=== PATIENT | male | born 1960 | race Caucasian/White ===

== ENCOUNTER 2021-01-16 08:03 | Emergency (ER) | payer OTHER ==
[2021-01-16 08:21] VITALS: BP 120/92; PULSE 75
[2021-01-16] MEDS ORDERED: Acetaminophen/HYDROcodone 325-5 MG Tab PO ONE (08:36)
--- NOTE | 2021-01-16 08:48 | EDM.PDOC ---
ED HPI GENERAL MEDICAL PROBLEM - General Chief Complaint: Chest Pain Stated Complaint: FALL,HEAD,RIB,KNEE INJURY.DIFFICULTY BREATHING Time Seen by Provider: 01/16/21 08:23 Source of Information: Reports: Patient, RN Notes Reviewed - History of Present Illness INITIAL COMMENTS - FREE TEXT/NARRATIVE: 60 yr old male with R chest wall pain status post fall against the metal bar of a trailer yesterday morning about 24 hrs ago. Continues to have severe pain with deep breathing, any type of motion. He did hit his R face, was briefly dazed. No LOC. No neck or chest discomfort. Right Chest Pain Score (Numeric/FACES): 10 - Related Data Allergies Allergy/AdvReac Type Severity Reaction Status Date / Time sodium pentothal Allergy Mild Vomiting Uncoded 01/16/21 08:17 Home Meds: Home Meds Acetaminophen/HYDROcodone [[place] 325-5 MG] 1 tab PO Q4H PRN #30 tablet 01/16/21 [Rx] Past Medical History - Past Health History Medical/Surgical History: Denies Medical/Surgical History Cardiovascular History: Reports: Heart Murmur Psychiatric History: Reports: Depression - Infectious Disease History Infectious Disease History: Reports: Rheumatic Fever - Past Surgical History Other Musculoskeletal Surgeries/Procedures:: back and arm surgery Social & Family History - Tobacco Use Tobacco Use Status *Q: Current Every Day Tobacco User Years of Tobacco use: 40 Packs/Tins Daily: 2 ED ROS GENERAL - Review of Systems Review Of Systems: See Below Constitutional: Denies: Fever, Chills, Diaphoresis HEENT: Denies: Ear Discharge, Vertigo, Vision Change Respiratory: Reports: Pleuritic Chest Pain. Denies: Shortness of Breath Cardiovascular: Reports: Chest Pain GI/Abdominal: Denies: Abdominal Pain, Nausea, Vomiting Musculoskeletal: Reports: Back Pain (R post lat back). Denies: Neck Pain, Shoulder Pain, Arm Pain Skin: Denies: Bruising Neurological: Denies: Numbness, Tingling, Trouble Speaking, Difficulty Walking, Weakness ED EXAM, GENERAL - Physical Exam Exam: See Below General Appearance: Alert, Mild Distress Eye Exam: Bilateral Eye: PERRL Ears: Normal External Exam Throat/Mouth: Normal Inspection Head: Other (small abrasion R lateral face) Neck: Supple, Non-Tender Respiratory/Chest: No Respiratory Distress, Lungs Clear, Other (quite severe tenderness R lateral chest, R ant. lat chest and R post lat chest). No: Rhonchi, Wheezing Cardiovascular: Regular Rate, Rhythm GI/Abdominal: Soft, Non-Tender. No: Guarding Back Exam: No: CVA Tenderness (R) Extremities: Normal Inspection, Normal Range of Motion Skin Exam: Warm, Dry, Normal Color Course - Vital Signs Last Recorded V/S: Last Vital Signs Temp 97.2 F 01/16/21 08:18 Pulse 75 01/16/21 08:18 Resp 16 01/16/21 08:18 BP 120/92 H 01/16/21 08:18 Pulse Ox 100 01/16/21 08:18 - Re-Assessments/Exams Free Text/Narrative Re-Assessment/Exam: 01/16/21 14:38 Rib views show at least 1 lower R nondisplaced fx. Radiologist report has come that reads out fx's of 8th and 9th ribs on the right. Discharge instr. as documented. Departure - Departure Time of Disposition: 09:42 Disposition: Home, Self-Care 01 Condition: Fair Clinical Impression: Closed rib fracture Prescriptions: Acetaminophen/HYDROcodone [[place] 325-5 MG] 1 tab PO Q4H PRN #30 tablet PRN Reason: Pain Instructions: Rib Fracture, [id number] Referrals: PCP,None [Primary Care Provider] - Forms: ED Department Discharge Additional Instructions: X rays show that you have nondisplaced fractures of your R 8th and 9th ribs. Rest, no lifting until pain resolving, no work recomended for 10 to 14 days until pain resolving to where you can safely resume your normal work duties. Les wrap when walking if needed for severe pain. Do not wear the les wrap all of the time. Take some deep breaths every 1 to 2 hours when awake to help prevent pneumonia. Continue ibuprofen 3 times daily. You may take tylenol in between doses for mild to moderate pain or hydrocodone if needed for severe pain. Hydrocodone if needed for severe pain. Prescription has been sent to [facility] on [address]. Do not drive or work when taking hydrocodone. For your weight do not take more than 4,000 mg tylenol or acetaminophen daily. Follow up with [facility] or medical provider as needed. Return to ED as needed if symptoms worsening in any way. Sepsis Event Note (ED) - Evaluation Sepsis Screening Result: No Definite Risk - Focused Exam Vital Signs: Vital Signs Temp Pulse Resp BP Pulse Ox 01/16/21 08:18 97.2 F 75 16 120/92 H 100
--- NOTE | 2021-01-16 09:36 | CR ---
Chest and right ribs: Frontal view of the chest was obtained as well as 2 views of the right ribs. Comparison: Prior chest x-ray of 12/28/14. Heart size and mediastinum are normal. Lungs are clear with no acute parenchymal change. Apical pleural thickening is seen on both sides which appear to be stable. No acute parenchymal change is seen. Fractures are noted within the approximate right anterior eighth and ninth ribs. Slight adjacent pleural thickening is seen in this area. No additional fracture is seen Impression: 1. Fractures within the approximate anterior eighth and ninth rib on the right side. Adjacent pleural thickening is noted. 2. No other acute abnormality is seen on frontal chest x-ray. Diagnostic code #3
== END 2021-01-16 10:00 | disposition home or self-care (01) ==
LOC: JD.ED 08:03
DX: S22.41XA Multiple fractures of ribs, right side, initial encounter for closed fracture (principal); S00.81XA Abrasion of other part of head, initial encounter; Z88.8 Allergy status to other drugs, medicaments and biological substances; Z72.0 Tobacco use; W22.8XXA Striking against or struck by other objects, initial encounter
CPT/HCPCS: 71101; 99283; A9270